=== PATIENT | female | born 2000 | race Caucasian/White ===

== ENCOUNTER 2025-04-04 04:12 | Inpatient (IN) | payer BC, SELFPAY ==
[2025-04-04] VITALS (78 sets, daily range): BP systolic 74–145; BP diastolic 47–119; PULSE 63–143; RESP 14–20; TEMP 36.3–37; O2SAT 80–100; BMI 30.8
[2025-04-04 04:58] LABS: Hematocrit 42.3 % (37.0-47.0); Hemoglobin 14.3 g/dL (12.0-15.0); Immature Granulocyte Percent A 0.6 % (0-0.5); Lymphocytes Absolute Auto 1.94 K/mm3 (0.9-3.2); Mean Corpuscular HGB Conc 33.8 g/dl (32-36); Mean Corpuscular Hemoglobin 31.2 pg (26-34); Mean Corpuscular Volume 92.2 fl (80-100); Nucleated Red Blood Cells Absolute Auto 0.000 K/mm3 (0.0-0.012); Nucleated Red Blood Cells Perc 0.0 % (0.0-0.2); Platelet Count Result 175 k/mm3 (150-375); Red Blood Count 4.59 M/mm3 (4.2-5.4); White Blood Count 9.5 K/mm3 (4.5-10.0)
--- NOTE | 2025-04-04 05:01 | LDADM ---
This patient, Amelia Latham, was admitted to Labor/Delivery/Recovery 103 on 04/04/25 at 04:12. Plans for labor, pain management and were discussed with patient. Patient/family oriented to hospital policies and general routines including ID bracelet, bed and alarms, visiting hours, pain management, procedures, bathroom and other care routines, personal items, smoking policy, room service/diet and guest tray routines, security routines, and visiting hours. Patient/Family are encouraged to report perceived risks to care and to ask questions if they do not understand what they are told or what they should do. See OBIX for further documentation.
[2025-04-04 06:21] LABS: Syphilis IgG/IgM Antibody Non-Reactive (Nonreactive)
--- NOTE | 2025-04-04 08:26 | WPDOBADMIT ---
Obstetrics - Admit Note Admission Note: record reviewed. No pertinent additions to the history and/or any subsequent changes in the physical findings that are not consistent with the expected course of the were found. Additions to the history and/or subsequent changes in the physical findings follow. Admit in labor, anticipate vaginal delivery
[2025-04-04] MEDS: LACTATED RINGERS 1,000 ML 999 ML IV CONT ×2 (09:56→10:55)
--- NOTE | 2025-04-04 11:27 | P.PNAN_ITS ---
Anes - Eval Pre Procedure Procedure: labor pain management Date/Time: 04/04/25 11:27 Surgeon: Domingo Preop Diagnosis: pain during labor Pre Op Diagnosis: Labor Patient Data Age: 24 Gender: F Height: 1.65 m Weight: 84.09 kg Last Vital Signs Temp 98.3 F 04/04/25 11:00 Pulse 82 04/04/25 11:25 BP 125/72 04/04/25 11:25 Pulse Ox 99 04/04/25 11:23 O2 Del Method Room Air 04/04/25 05:00 Allergies Allergy/AdvReac Type Severity Reaction Status Date / Time No Known Allergies Allergy Verified 04/04/25 05:06 Home Medications ?Medication ?Instructions ?Recorded ?Confirmed ?Type aspirin 81 mg tablet 81 mg PO DAILY 03/03/2503/13 History vit no.95-ferrous 1 tablet PO DAILY 03/03/25 04/04/25 History fumarate 28 mg-folic acid 800 mcg tablet () Laboratory Tests 04/04/25 04/04/25 04:53 05:29 WBC 9.5 K/mm3 (4.5-10.0) RBC 4.59 M/mm3 (4.2-5.4) Hgb 14.3 g/dL (12.0-15.0) Hct 42.3 % (37.0-47.0) MCV 92.2 fl (80-100) MCH 31.2 pg (26-34) MCHC 33.8 g/dl (32-36) RDW 13.2 % (11.5-14.5) Plt Count 175 k/mm3 (150-375) MPV 11.0 H fl (7.4-10.4) Immature Gran % (Auto) 0.6 H % (0-0.5) Neut % (Auto) 71.9 % (45.5-73.1) Lymph % (Auto) 20.4 % (18.3-44.2) [place] % (Auto) 5.5 % (2.6-8.5) Eos % (Auto) 1.2 % (0-4.4) Baso % (Auto) 0.4 % (0.2-1.2) Lymph # (Auto) 1.94 K/mm3 (0.9-3.2) [place] # (Auto) 0.5 K/mm3 (0.1-0.6) Eos # (Auto) 0.1 K/mm3 (0-0.3) Baso # (Auto) 0.0 K/mm3 (0.0-0.1) Abs Immat Gran (auto) 0.06 H K/mm3 (0.00-0.031) Absolute Neuts (auto) 6.8 H K/mm3 (1.3-6.7) Absolute Nucleated RBC 0.000 K/mm3 (0.0-0.012) Nucleated RBC % 0.0 % (0.0-0.2) Syphilis IgG/IgM Ab Non-reactive (Nonreactive) Blood Type O Positive Antibody Screen Negative Patient hx anesthesia problems: none Family hx anesthesia problems: none Results Review: All pre-operative results and documents have been reviewed as part of the pre- operative evaluation. [facility] Past Medical History Medical History (Updated 04/04/25 @ 11:29 by Jerrica Vazquez CRNA) Pain during labor Family History Family History Father Hypertension Other Cancer Social History Social History Smoking status: Never smoker Substance use: never Lack of Transportation: No Lack of Food: Never True Current Housing: I Have Housing Concerned About Future Housing: No Difficulty Paying Gas/Electric Bills: No Difficulty Paying for Meds: No Currently Unemployed: No Education: High School Diploma/GED Difficulty w/ Childcare or Family Care: No Spiritual care concerns: No Exam Day of Procedure 04/04/25 11:27
[2025-04-04] MEDS: OXYTOCIN 30 UNITS/NS 500 ML 30 UNITS/500 ML BAG 999 UNITS IV CONT (14:03)
--- NOTE | 2025-04-04 14:09 | PM.OBPRVD ---
OB - Vaginal Delivery Note Procedure Delivery date: 04/04/25 Delivery monitor: External FHT and External Uterine Route of delivery: Episiotomy description: None Laceration Description: None Specimen: No Quantitative Blood Loss (ml): 75 Anesthesia type: Epidural Disposition: Floor Complications: No immediate complications Baby Date of : 04/04/25 Time of : 13:59 Gestational Age by Date: 40 gender: Female presentation: vertex position: Left Occiput Anterior Placenta delivery description: Spontaneous Cord Vessel Description: 3 Vessels, Nuchal Cord (x1), Clamped/Cut and Delayed Cord Clamping
[2025-04-04] MEDS: OXYTOCIN 30 UNITS/NS 500 ML 30 UNITS/500 ML BAG 125 UNITS IV CONT (14:29)
--- NOTE | 2025-04-04 17:42 | OBPPTRN ---
Patient transferred to post room #286 via wheelchair. Support person present. Oriented to unit, room, information board, rooming in, admission packet and security measures. Patient verbalizes understanding.
[2025-04-04] MEDS: IBUPROFEN 600 MG TABLET PO (19:10)
[2025-04-04] MEDS: ACETAMINOPHEN 325 MG TABLET 650 MG PO (19:10)
[2025-04-04] MEDS: BENZOCAINE 20% AER SPR (*SP) 56 GM CAN 1 SPRAY TOPICAL (19:16)
[2025-04-04] MEDS: WITCH HAZEL 40 PADS 1 PAD TOPICAL (19:16)
[2025-04-05] MEDS: IBUPROFEN 600 MG TABLET PO ×3 (01:49→15:27)
[2025-04-05] MEDS: ACETAMINOPHEN 325 MG TABLET 650 MG PO ×3 (01:50→15:27)
[2025-04-05 03:28] LABS: Hematocrit 37.8 % (37.0-47.0); Hemoglobin 13.0 g/dL (12.0-15.0)
[2025-04-05 07:25] VITALS: BP 123/78; PULSE 70; RESP 18; TEMP 36.6; O2SAT 99
[2025-04-05] MEDS: DOCUSATE SODIUM 100 MG CAPSULE PO (07:46)
[2025-04-05] MEDS: MULTIVIT/MIN/PREN/FOL AC/IRON TABLET 1 TAB PO (07:46)
--- NOTE | 2025-04-05 09:59 | WPDANLDPN2 ---
Anes-Prog Note L&D Date/Time: 04/05/25 09:59 Comfortable throughout: labor and delivery Neuraxial method: epidural Epidural/Spinal procedure site: clean & non-tender Neuro status: Neuro function grossly intact. Cardiovascular status: normal Respiratory status: normal Airway patency: baseline Mental status: baseline Post-Op hydration status: normal Vital Signs: Last Vital Signs Temp 36.6 C 04/05/25 07:25 Pulse 70 04/05/25 07:25 Resp 18 04/05/25 07:25 BP 123/78 04/05/25 07:25 Pulse Ox 99 04/05/25 07:25 O2 Del Method Room Air 04/04/25 05:00 Pain score (VAS): 1 I/O: Intake & Output 04/04/25 04/05/25 04/05/25 23:59 07:59 15:59 Intake Total 200 Balance 200 Post-procedural complaints: none Patient feedback: Patient satisfied with anesthetic care.
--- NOTE | 2025-04-05 10:30 | PC.NURSE ---
Consulted with mother concerning needs and she shared her ability to independently latch infant optimally without pain. She breastfed her first baby for 15 months. Mother is feeding appropriately for growth of and understands stimulating infant to eat if needed. has had appropriate feedings in the last 24 hours meets the outcomes for weight, output, blood sugar and jaundice at this time. Provided information for community resources, outpatient services, and when to call a provider using the resource of the feeding sheet along with the mom and baby guide. She declines a WIC referral and has a breast pump at home. Mother voiced understanding of the information shared, is confident to continue effectively her at home, when to call for assistance, denies any additional assistance or education at this time. Reported to the Primary RN.
--- NOTE | 2025-04-05 10:37 | P.PNOB_ITS ---
OB - PN: Subj Subjective Date/time seen: 04/05/25 10:37 Interval history: PPD#1 s/p Doing well, pain controlled Voiding without issue Tolerating general diet Ready for discharge home OB - PN: Obj Data Labs 04/05/25 03:23 Labs: Laboratory Results - last 24 hr 04/05/25 03:23 Hgb 13.0 Hct 37.8 OB - PN A/P Plan day: 1 Plan: routine care and discharge home Time Spent With Patient Time: Total time spent is greater than 50% in coordination of care (as documented) at patient's floor/unit and/or counseling patient: Review of Systems 2 Review of Systems: All systems reviewed & are unremarkable except as noted in HPI and below Exam 2 Const: General: comfortable and no acute distress O rientation/consciousness: patient oriented x3 Resp: Effort & Inspection: normal respiratory effort
[2025-04-05 12:01] VITALS: BP 133/68; PULSE 65; RESP 16; TEMP 36.6; O2SAT 99
--- NOTE | 2025-04-05 12:05 | PC.NURSE ---
Patient viewed the discharge video Mother & Baby Care, The First Two Weeks. Patient was given the opportunity and encouraged to ask questions. Patient verbalized understanding of information shared and has been given the mother/baby guide for home reference.
--- NOTE | 2025-04-05 16:26 | PC.NURSE ---
Consent to take home her placenta was completed and patient was given her placenta in a labeled container, her placed it in a cooler.
--- NOTE | 2025-04-06 16:10 | PM.OBDSVD ---
DS: Admitting Diagnosis Discharge Date 04/05/25 Admitting Diagnosis labor DS: Discharge Diagnosis Discharge Diagnosis (1) (normal spontaneous vaginal delivery): Code(s): O80 - Encounter for full-term uncomplicated delivery Status: Acute OB - DS: Summary OB Procedures : None OB Procedures Intrapartum: Spontaneous Vag Delivery OB Procedures: : None Peripartum Data Laceration Description: None Episiotomy description: None Time Spent with Patient Time attestation: Total time spent providing and/or coordinating discharge services: Discharge Plan Discharge Attending physician on discharge: Gamal Gonzales Consulting providers: Ava Parks; Jerrica Vazquez; Jasbir Cartagena Discharging Clinician: Gamal Gonzales Patient Disposition: Home Activity: may shower, as tolerated and pelvic rest Diet: as tolerated Discharge Instructions: Education: Mom and Baby Guide Given to: Mother Follow-Up: Call your delivering provider's office for an appointment to be seen in: 5 weeks Mom and baby should come to the [facility] for the follow-up appointment. Appointment Date/Time: April 07, 2025 at 10:00 am What to expect at your follow-up visit: Physical Assessment Call [phone] if you are unable to keep your appointment time. BREAST CARE: * Wear a snug supportive bra. * For engorgement discomfort: Breast Feeding: * Apply warm moist washcloths * Express milk as needed to relieve engorgement * Wear loose clothing Bottle Feeding: * May apply ice packs * For sore nipples: * Identify correct latch-on * Apply warm moist washcloths before and after nursing * Air dry nipples after nursing * May apply Lansinoh cream to nipples EPISIOTOMY/PERINEAL CARE: * Until bleeding stops, use your shanelle bottle after urinating * Change your pad frequently throughout the day * You may take sitz baths several times a day (fill your bathtub with warm water and soak for 20 minutes.) Do NOT bathe in the water * No tub baths until seen by your physician - You may shower ACTIVITY: * Rest as much as possible. * Do not exercise or lift anything heavier than your baby (such as laundry or other children.) * Avoid stairs or driving as much as possible. * Do not put anything into the vagina. No douching, tampons, or sexual activity until seen by physician. NOTIFY PHYSICIAN IF YOU HAVE ANY QUESTIONS OR IF ANY OF THE FOLLOWING SYMPTOMS OCCUR: * If your episiotomy or incision becomes red, swollen, or more painful than what you have experienced in the hospital. * If your vaginal bleeding becomes foul smelling. * If your vaginal bleeding becomes more heavy than a period or if your bleeding changes from pink to bright red. However, you may pass an occasional walnut-sized clot once or twice for the first week . * If you experience a sharp, shooting pain in you calves. * If you discover a hard, reddened area on your breast or if you experience flu-like symptoms. DIET: * Eat regular, well-balanced meals. * Drink plenty of fluids daily. If , drink to thirst. Patient Language: Slovak Stand Alone Forms: General Discharge Information Follow-up/Referrals: Ava Parks CNM [Certified Nurse Massage Therapy Instructor, PRODUCT EXPERT] - 5 Weeks Discharge Medications: New ibuprofen 600 mg Tablet 600 mg PO Q6H PRN (Reason: Cramping) Qty: 30 0RF Continued PNV no.95-ferrous fumarate-FA [] 28 mg iron- 800 mcg tablet 1 tablet PO DAILY Discontinued aspirin 81 mg tablet 81 mg PO DAILY Date of admission: 04/04/25 04:12 Primary Care Provider: UNKNOWN,DOCTOR Admitting Provider: Basil Lane Attending physician on admission: Gamal Gonzales Condition: Stable
[2025-04-07 10:12] VITALS: BP 123/87; PULSE 69; RESP 18; TEMP 37.1; O2SAT 100
== END 2025-04-05 16:40 | disposition home or self-care (01) | DRG 807 ==
LOC: ANHOB2 04-05 10:40 → ANHLDR 04-06 09:00 → ANHOB2 04-06 09:00
PROVIDERS: Advanced Practice Midwife; Admitting Provider Obstetrics & Gynecology; Visit Provider Obstetrics & Gynecology
DX: O69.81X0 Labor and delivery complicated by cord around neck, without compression, not applicable or unspecified (principal); Z37.0 Single live birth; Z3A.40 40 weeks gestation of pregnancy
CPT/HCPCS: 36415; 85014; 85018; 85025; 86593; 86850; 86900; 86901; A9270; J2590; J2795; J7120

== ENCOUNTER 2025-04-17 16:35 | Observation (INO) | payer BC, SELFPAY ==
--- NOTE | ~2025-04-17 | CT_ITS ---
Exam: CT abdomen and pelvis with contrast Clinical History: [Right lower quadrant pain ] Comparison: [ None available] Technique: Multiple axial CT images of the abdomen and pelvis were obtained with IV contrast. Sagittal and coronal reformatted images were obtained. FINDINGS: Lung bases: [Clear ] Liver: [ No mass.] [ No intrahepatic biliary duct dilatation.] Gallbladder: [ No wall thickening or stones.] Common bile duct: [ Normal caliber.] [ No stones.] Spleen: [ Within normal limits.] Pancreas: [ No mass. No pancreatic fluid collection.] Adrenals: [ No masses.] Kidneys: [ No masses. No hydronephrosis.][ There are a few too small to characterize low-attenuation lesions in the kidneys.] Lymph nodes: [ No adenopathy in the abdomen or pelvis.] Stomach, small bowel and colon: [ No bowel wall thickening or obstruction.] Appendix is borderline dilated. No dilated bowel loops at this time. Peritoneum cavity: [ Small amount of fat stranding about the appendix. Bladder: [ Unremarkable.] Uterus is prominent and heterogeneous with fluid in the endometrial canal. Osseous structures: [ No acute fracture or destructive lesion.] [ Multilevel degenerative change in the visualized spine.] Abdominal aorta: [ No aneurysm.] Additional findings: [ None of significance.] IMPRESSION: 1. Small amount of nonspecific fat stranding about the appendix. The appendix is borderline dilated. Acute appendicitis is possible in the appropriate clinical setting. Correlate clinically. 2. Uterus is prominent and heterogeneous with fluid in the endometrial canal. A pelvic ultrasound is suggested. Reviewed, dictated and finalized at location Q. IMPRESSION: 1. Small amount of nonspecific fat stranding about the appendix. The appendix i s borderline dilated. Acute appendicitis is possible in the appropriate clinica l setting. Correlate clinically. 2. Uterus is prominent and heterogeneous with fluid in the endometrial canal. A pelvic ultrasound is suggested.
[2025-04-17 16:50] VITALS: BP 142/81; PULSE 66; RESP 20; TEMP 37.1; O2SAT 99
[2025-04-17 17:32] LABS: BEDSIDEPREGUCG Negative (Negative)
[2025-04-17 17:41] LABS: Hematocrit 47.1 % (37.0-47.0); Hemoglobin 16.0 g/dL (12.0-15.0); Immature Granulocyte Percent A 0.3 % (0-0.5); Lymphocytes Absolute Auto 2.16 K/mm3 (0.9-3.2); Mean Corpuscular HGB Conc 34.0 g/dl (32-36); Mean Corpuscular Hemoglobin 31.3 pg (26-34); Mean Corpuscular Volume 92.0 fl (80-100); Nucleated Red Blood Cells Absolute Auto 0.000 K/mm3 (0.0-0.012); Nucleated Red Blood Cells Perc 0.0 % (0.0-0.2); Platelet Count Result 269 k/mm3 (150-375); Red Blood Count 5.12 M/mm3 (4.2-5.4); White Blood Count 11.9 K/mm3 (4.5-10.0)
[2025-04-17 17:51] LABS: Alanine Aminotransferase 27 U/L (6-35); Albumin Level 4.3 g/dL (3.5-5.1); Alkaline Phosphatase 132 U/L (38-126); Anion Gap 8 mmol/L (4-12); Aspartate Amino Transferase 29 U/L (14-36); Bilirubin,Total 0.4 mg/dL (0.2-1.3); Blood Urea Nitrogen 18 mg/dL (7-17); Calcium 9.1 mg/dL (8.4-10.2); Carbon Dioxide 25 mmol/L (22-30); Chloride 103 mmol/L (98-107); Estimated Glomerular Filt Rate > 60; Glucose 97 mg/dL (65-110); Lipase 69 U/L (23-300); Potassium 3.6 mmol/L (3.4-5.0); Sodium 136 mmol/L (137-145); Total Protein 7.5 g/dL (6.3-8.2)
[2025-04-17 18:22] LABS: Add Urine Microscopic? YES; Appearance Urine Cloudy (Clear); Glucose Urine UA Negative (Negative); Leukocyte Esterase Ur Trace LEU/UL (Negative); Nitrate Urine Negative (Negative); Non Pathogenic Casts 0-2; Specific Grav Ur 1.022 (1.001-1.035)
--- NOTE | 2025-04-17 22:49 | ED_ITS ---
HPI - Abdominal Pain General Chief Complaint: Abdominal Pain <ADEOLA Villarreal Last Filed: 04/18/25 00:07> Stated Complaint: Abdominal pain <ADEOLA Villarreal Last Filed: 04/18/25 00:07> Time Seen by Provider: 04/17/25 21:02 <ADEOLA Villarreal Last Filed: 04/18/25 00:07> Source: patient <ADEOLA Villarreal Last Filed: 04/18/25 00:07> Mode of arrival: ambulatory <ADEOLA Villarreal Last Filed: 04/18/25 00:07> Limitations: no limitations <ADEOLA Villarreal Last Filed: 04/18/25 00:07> History of Present Illness HPI narrative: This is a 24-year-old female that presents to the emergency department for right lower quadrant abdominal pain. Ongoing since yesterday. Reports the pain initially was around her bellybutton, reports associated nausea and anorexia. She is two weeks post , vaginal delivery. Denies fevers, vomiting, and diarrhea, dysuria. <Latia Pepper PA-C - Last Filed: 04/18/25 00:07> Related Data Home Medications: Home Medications ?Medication ?Instructions ?Recorded ?Confirmed ?Last Taken ?Type vit no.95-ferrous 1 tablet PO DAILY 03/03/25 04/18/25 04/17/25 History fumarate 28 mg-folic acid 800 mcg tablet () aspirin 81 mg tablet,delayed 81 mg PO DAILY 04/18/25 0 04/18/25 04/17/25 History release (Adult Aspirin Regimen) <ADEOLA Villarreal Last Filed: 04/18/25 00:07> Allergies/Adverse Reactions: Allergies Allergy/AdvReac Type Severity Reaction Status Date / Time No Known Allergies Allergy Verified 04/17/25 16:50 <ADEOLA Villarreal Last Filed: 04/18/25 00:07> Review of Systems 2 Review of Systems: All systems reviewed & are unremarkable except as noted in HPI and below <ADEOLA Villarreal Last Filed: 04/18/25 00:07> [facility] Past Medical History Medical History: Medical History (Updated 04/18/25 @ 00:05 by Latia Pepper PA-C) Pain during labor <Latia Pepper PA-C - Last Filed: 04/18/25 00:07> Family History Family History: Family History Father Hypertension Other Cancer <Latia Pepper PA-C - Last Filed: 04/18/25 00:07> Social History Social History: Social History Smoking status: Never smoker Second hand tobacco smoke exposure: No Alcohol intake: never Substance use: never Substance use type: does not use Lack of Transportation: No Lack of Food: Never True Current Housing: I Have Housing Concerned About Future Housing: No Difficulty Paying Gas/Electric Bills: No Difficulty Paying for Meds: No Currently Unemployed: No Education: High School Diploma/GED Difficulty w/ Childcare or Family Care: No Spiritual care concerns: No <Latia Pepper PA-C - Last Filed: 04/18/25 00:07> Exam 2 Narrative: GENERAL: Well-appearing, well-nourished, and in no acute distress. HEAD: Normocephalic, atraumatic. EYES: EOMI. CHEST: Clear to auscultation. No respiratory distress. No wheezes rales or rhonchi HEART: Regular rate and rhythm. No murmur heard. Normal peripheral pulses. ABDOMEN: Soft, nondistended, normal active bowel sounds. Tender to palpation in the right lower quadrant, without guarding EXTREMITIES: Normal range of motion. No edema. SKIN: Warm, dry, no rash. NEURO: No focal deficits. Alert and oriented x3. PSYCH: Normal mood and affect <Latia Pepper PA-C - Last Filed: 04/18/25 00:07> Course Course Emergency Course: patient updated on her workup and agrees with plan of care <Latia Pepper PA-C - Last Filed: 04/18/25 00:07> CIVIL MANAGER/PA Physician Supervision This visit was performed by both a physician and an APC. For this patient encounter, I reviewed the CIVIL MANAGER or PA documentation, treatment plan, and medical decision making and had [id number] time with this patient. I performed all aspects of the MDM as documented. <Moody Santos MD - Last Filed: 04/18/25 07:05> Consultations Consultation #1: Spoke with Dr. Blount about patient and workup. Patient will be started on IV antibiotics, given pain medication as needed, NPO, likely surgery in the morning <Latia Pepper PA-C - Last Filed: 04/18/25 00:07> Date: 04/17/25 <Latia Pepper PA-C - Last Filed: 04/18/25 00:07> Vital Signs Vital signs: Vital Signs Temperature 98.7 F 04/17/25 16:50 Pulse Rate 66 04/17/25 16:50 Respiratory Rate 20 04/17/25 16:50 Blood Pressure 142/81 H 04/17/25 16:50 Pulse Oximetry 99 04/17/25 16:50 Oxygen Delivery Room Air 04/17/25 16:50 Temperature 97.1 F L 04/18/25 06:00 Pulse Rate 67 04/18/25 06:00 Respiratory Rate 20 04/18/25 06:00 Blood Pressure 98/60 L 04/18/25 06:00 Pulse Oximetry 98 04/18/25 06:00 Oxygen Delivery Room Air 04/17/25 16:50 <Latia Pepper PA-C - Last Filed: 04/18/25 00:07> Vital Signs Temperature 98.7 F 04/17/25 16:50 Pulse Rate 66 04/17/25 16:50 Respiratory Rate 20 04/17/25 16:50 Blood Pressure 142/81 H 04/17/25 16:50 Pulse Oximetry 99 04/17/25 16:50 Oxygen Delivery Room Air 04/17/25 16:50 Temperature 97.1 F L 04/18/25 06:00 Pulse Rate 67 04/18/25 06:00 Respiratory Rate 20 04/18/25 06:00 Blood Pressure 98/60 L 04/18/25 06:00 Pulse Oximetry 98 04/18/25 06:00 Oxygen Delivery Room Air 04/17/25 16:50 <Moody Santos MD - Last Filed: 04/18/25 07:05> MDM - Abdominal Pain MDM Narrative Medical decision making narrative: Patient presents emergency department for right lower quadrant abdominal pain. She is afebrile and nontoxic appearing. CBC with leukocytosis to 11.9. Also shows hemoconcentration. Metabolic panel with some mild evidence of dehydration as well. Patient given a L of IV fluids in the ED. urine without evidence of infection, test is negative. CT abdomen pelvis shows acute appendicitis. Spoke with Dr. Blount about patient and workup. Patient will be started on IV antibiotics, given pain medication as needed, NPO, likely surgery in the morning <Latia Pepper PA-C - Last Filed: 04/18/25 00:07> Differential Diagnosis Differential diagnosis: Likely acute appendicitis, calculus of kidney and diverticulitis <Latia Pepper PA-C - Last Filed: 04/18/25 00:07> Lab Data Attestation: I reviewed the patient's lab results. <Latia Pepper PA-C - Last Filed: 04/18/25 00:07> Result diagrams: 04/17/25 17:28 04/17/25 17:28 <ADEOLA Villarreal Last Filed: 04/18/25 00:07> Labs: Lab Results 04/17/25 04/17/25 Range/Units 17:28 17:29 WBC 11.9 H (4.5-10.0) K/mm3 RBC 5.12 (4.2-5.4) M/mm3 Hgb 16.0 H D (12.0-15.0) g/dL Hct 47.1 H (37.0-47.0) % MCV 92.0 (80-100) fl MCH 31.3 (26-34) pg MCHC 34.0 (32-36) g/dl RDW 12.2 (11.5-14.5) % Plt Count 269 D (150-375) k/mm3 MPV 11.0 H (7.4-10.4) fl Immature Gran % (Auto) 0.3 (0-0.5) % Neut % (Auto) 74.0 H (45.5-73.1) % Lymph % (Auto) 18.2 L (18.3-44.2) % [place] % (Auto) 4.3 (2.6-8.5) % Eos % (Auto) 2.4 (0-4.4) % Baso % (Auto) 0.8 (0.2-1.2) % Lymph # (Auto) 2.16 (0.9-3.2) K/mm3 [place] # (Auto) 0.5 (0.1-0.6) K/mm3 Eos # (Auto) 0.3 (0-0.3) K/mm3 Baso # (Auto) 0.1 (0.0-0.1) K/mm3 Abs Immat Gran (auto) 0.03 (0.00-0.031) K/mm3 Absolute Neuts (auto) 8.8 H (1.3-6.7) K/mm3 Absolute Nucleated RBC 0.000 (0.0-0.012) K/mm3 Nucleated RBC % 0.0 (0.0-0.2) % Sodium 136 L (137-145) mmol/L Potassium 3.6 (3.4-5.0) mmol/L Chloride 103 (98-107) mmol/L Carbon Dioxide 25 (22-30) mmol/L Anion Gap 8 (4-12) mmol/L BUN 18 H (7-17) mg/dL Creatinine 1.07 H (0.7-1.0) mg/dL Estim Creat Clear Calc Not Reportable Estimated GFR > 60 (59 - ) Glucose 97 (65-110) mg/dL Calcium 9.1 (8.4-10.2) mg/dL Total Bilirubin 0.4 (0.2-1.3) mg/dL AST 29 (14-36) U/L ALT 27 (6-35) U/L Alkaline Phosphatase 132 H (38-126) U/L Total Protein 7.5 (6.3-8.2) g/dL Albumin 4.3 (3.5-5.1) g/dL Lipase 69 (23-300) U/L Urine Color Yellow (Yellow) Urine Appearance Cloudy H (Clear) Urine pH 8.0 (5.0-9.0) Ur Specific [place] 1.022 (1.001-1.035) Urine Protein Negative (Negative) mg/dL Urine Glucose (UA) Negative (Negative) mg/dL Urine Ketones Trace H (Negative) mg/dL Ur Blood (Man) Negative (Negative) Urine Nitrate Negative (Negative) Urine Bilirubin Negative (Negative) Urine Urobilinogen 1.0 (<2.0) mg/dL Leukocyte Esterase Rfl Trace H (Negative) LOUISE/UL Urine RBC 0-2 (0-2) /hpf Urine WBC 0-5 (0-3) /hpf Ur Squamous Epith Cells None seen (Few) /hpf Urine Bacteria None seen /hpf Urine Casts 0-2 POC Urine HCG, Qual Negative (Negative) <Latia Pepper PA-C - Last Filed: 04/18/25 00:07> Lab Results 04/17/25 04/17/25 Range/Units 17:28 17:29 WBC 11.9 H (4.5-10.0) K/mm3 RBC 5.12 (4.2-5.4) M/mm3 Hgb 16.0 H D (12.0-15.0) g/dL Hct 47.1 H (37.0-47.0) % MCV 92.0 (80-100) fl MCH 31.3 (26-34) pg MCHC 34.0 (32-36) g/dl RDW 12.2 (11.5-14.5) % Plt Count 269 D (150-375) k/mm3 MPV 11.0 H (7.4-10.4) fl Immature Gran % (Auto) 0.3 (0-0.5) % Neut % (Auto) 74.0 H (45.5-73.1) % Lymph % (Auto) 18.2 L (18.3-44.2) % [place] % (Auto) 4.3 (2.6-8.5) % Eos % (Auto) 2.4 (0-4.4) % Baso % (Auto) 0.8 (0.2-1.2) % Lymph # (Auto) 2.16 (0.9-3.2) K/mm3 [place] # (Auto) 0.5 (0.1-0.6) K/mm3 Eos # (Auto) 0.3 (0-0.3) K/mm3 Baso # (Auto) 0.1 (0.0-0.1) K/mm3 Abs Immat Gran (auto) 0.03 (0.00-0.031) K/mm3 Absolute Neuts (auto) 8.8 H (1.3-6.7) K/mm3 Absolute Nucleated RBC 0.000 (0.0-0.012) K/mm3 Nucleated RBC % 0.0 (0.0-0.2) % Sodium 136 L (137-145) mmol/L Potassium 3.6 (3.4-5.0) mmol/L Chloride 103 (98-107) mmol/L Carbon Dioxide 25 (22-30) mmol/L Anion Gap 8 (4-12) mmol/L BUN 18 H (7-17) mg/dL Creatinine 1.07 H (0.7-1.0) mg/dL Estim Creat Clear Calc Not Reportable Estimated GFR > 60 (59 - ) Glucose 97 (65-110) mg/dL Calcium 9.1 (8.4-10.2) mg/dL Total Bilirubin 0.4 (0.2-1.3) mg/dL AST 29 (14-36) U/L ALT 27 (6-35) U/L Alkaline Phosphatase 132 H (38-126) U/L Total Protein 7.5 (6.3-8.2) g/dL Albumin 4.3 (3.5-5.1) g/dL Lipase 69 (23-300) U/L Urine Color Yellow (Yellow) Urine Appearance Cloudy H (Clear) Urine pH 8.0 (5.0-9.0) Ur Specific [place] 1.022 (1.001-1.035) Urine Protein Negative (Negative) mg/dL Urine Glucose (UA) Negative (Negative) mg/dL Urine Ketones Trace H (Negative) mg/dL Ur Blood (Man) Negative (Negative) Urine Nitrate Negative (Negative) Urine Bilirubin Negative (Negative) Urine Urobilinogen 1.0 (<2.0) mg/dL Leukocyte Esterase Rfl Trace H (Negative) LOUISE/UL Urine RBC 0-2 (0-2) /hpf Urine WBC 0-5 (0-3) /hpf Ur Squamous Epith Cells None seen (Few) /hpf Urine Bacteria None seen /hpf Urine Casts 0-2 POC Urine HCG, Qual Negative (Negative) <Moody Santos MD - Last Filed: 04/18/25 07:05> Imaging Data Radiologist's impression: CT abdomen/pelvis: Acute non perforated appendicitis with prominent periappendiceal stranding, appendix 0.8 cm diameter with possible stone <ADEOLA Villarreal Last Filed: 04/18/25 00:07> Critical Care Time Critical Care Time Critical Care Time: No <ADEOLA Villarreal Last Filed: 04/18/25 00:07> Discharge Plan Discharge Clinical Impression: Acute appendicitis Qualifiers: Acute appendicitis type: with localized peritonitis Appendicitis gangrene presence: without gangrene Appendicitis perforation presence: without perforation Appendicitis abscess presence: without abscess Qualified Code(s): K 35.30 - Acute appendicitis with localized peritonitis, without perforation or gangrene <ADEOLA Villarreal Last Filed: 04/18/25 00:07> Patient Disposition: Still a Patient <ADEOLA Villarreal Last Filed: 04/18/25 00:07> Condition: Stable <ADEOLA Villarreal Last Filed: 04/18/25 00:07>
[2025-04-17] MEDS: SODIUM CHLORIDE 0.9% IV 1,000 ML 999 ML IV CONT (23:00)
[2025-04-18] VITALS (10 sets, daily range): BP systolic 98–132; BP diastolic 56–74; PULSE 67–91; RESP 12–20; TEMP 36.2–37.1; O2SAT 96–100
[2025-04-18] MEDS: SODIUM CHLORIDE 0.9% IV 1,000 ML 125 ML IV CONT
[2025-04-18] MEDS: PIPERACILLIN/TAZOBACTAM SOD 3.375 GM in SODIUM CHLORIDE 0.9% IV 50 ML 100 ML IVPB ×2 (00:01→05:04)
--- NOTE | 2025-04-18 00:40 | ADMGEN ---
This patient, Amelia Latham, was admitted to [facility] Surg Room 329-01. Patient/family oriented to hospital policies and general routines including ID bracelet, bed and alarms, visiting hours, pain management, procedures, bathroom and other care routines, personal items, smoking policy, room service/diet, and visiting hours. Information on how to activate the Rapid Response Team has been discussed. Patient/Family are encouraged to report perceived risks to care and to ask questions if they do not understand what they are told or what they should do.
[2025-04-18] MEDS: KETOROLAC 30 MG/ML VIAL (*BKC) IV PUSH ×2 (00:55→10:42)
[2025-04-18] MEDS: DEXTROSE 50% 25 GM/50 ML SYRINGE IV PUSH (01:25)
[2025-04-18] MEDS: DEXTROSE 5%/LACTATED RINGERS 1,000 ML 125 ML IV CONT (01:45)
--- NOTE | 2025-04-18 09:11 | P.HP_ITS ---
H&P: HPI History of Present Illness Date/Time: 04/18/25 09:11 Chief Complaint: Acute appendicitis Narrative: Pt is a female who is 2 weeks after an uncomplicated fashion delivery. About 1 day ago she started having some generalized lower and middle abdominal pain which localized the right lower quadrant of the abdomen. Some nausea and anorexia but [place] [address] scan abdomen pelvis showed a dilated appendix about 8mm in diameter. Some periappendiceal inflammation noted. May have a small appendicolith. Otherwise she is very healthy 24-year-old. She is currently . Review of Systems Review of Systems: The remainder of the review of systems to include constitutional, HEENT, cardiovascular, respiratory, GI, , integumentary, musculoskeletal, endocrine, immunologic, hematologic, psychiatric, and neurologic are all negative except for which is mentioned above in the HPI. [facility] Past Medical History Medical History Pain during labor Family History Family History Father Hypertension Other Cancer Social History Social History Smoking status: Never smoker Second hand tobacco smoke exposure: No Alcohol intake: never Substance use: never Substance use type: does not use Lack of Transportation: No Lack of Food: Never True Current Housing: I Have Housing Concerned About Future Housing: No Difficulty Paying Gas/Electric Bills: No Difficulty Paying for Meds: No Currently Unemployed: No Education: High School Diploma/GED Difficulty w/ Childcare or Family Care: No Spiritual care concerns: No Meds Home Medications and Allergies Home Medications ?Medication ?Instructions ?Recorded ?Confirmed ?Type vit no.95-ferrous 1 tablet PO DAILY 03/03/25 04/18/25 History fumarate 28 mg-folic acid 800 mcg tablet () ibuprofen 600 mg tablet 600 mg PO Q6H PRN Cramping # 30 tabs 04/05/25 04/18/25 Rx aspirin 81 mg tablet,delayed 81 mg PO DAILY 04/18/25 0 04/18/25 History release (Adult Aspirin Regimen) Allergies Allergy/AdvReac Type Severity Reaction Status Date / Time No Known Allergies Allergy Verified 04/17/25 16:50 Vital Signs Vital Signs - 24 hr 04/17/25 16:50 04/18/25 01:02 04/18/25 06:00 Temperature 37.1 C 36.2 C L 36.2 C L Pulse Rate 66 85 67 Respiratory Rate 20 20 20 Blood Pressure 142/81 H 128/73 98/60 L Pulse Oximetry 99 98 98 Oxygen Delivery Room Air Exam Const: General: comfortable and no acute distress HENMT: Ears: TM's normal bilaterally Face/Nose/Sinus: Normal nares present Mouth: Yes moist mucous membranes Eyes: General: appearance normal, both eyes and all related structures Sclera: sclerae normal Pupils: Equal, round and reactive pupils present EOM: EOMs intact bilaterally Neck: Neck: supple and no JVD Resp: Effort & Inspection: normal respiratory effort Auscultation: clear to auscultation bilaterally Cardio: Rate: regular rate Rhythm: regular rhythm GI: Other: Abdomen is soft and nondistended. Mild tenderness right lower quadrant. No generalized peritoneal signs. No surgical scars. No ventral hernias. Skin: General skin exam: normal color and no rashes or lesions noted Neuro: General: gait normal Speech: normal speech Motor exam (neuro): 5/5 motor strength present throughout Extrem: General: normal to inspection Psych: Mental Status: mental status grossly normal Affect: normal affect H&P: Results Labs Labs: Short CBC 04/17/25 Range/Units 17:28 WBC 11.9 H (4.5-10.0) K/mm3 Hgb 16.0 H D (12.0-15.0) g/dL Hct 47.1 H (37.0-47.0) % Plt Count 269 D (150-375) k/mm3 BMP 04/17/25 17:28 Sodium 136 L Potassium 3.6 Chloride 103 Carbon Dioxide 25 BUN 18 H Creatinine 1.07 H Glucose 97 Calcium 9.1 Liver Function 04/17/25 Range/Units 17:28 Total Bilirubin 0.4 (0.2-1.3) mg/dL AST 29 (14-36) U/L ALT 27 (6-35) U/L Alkaline Phosphatase 132 H (38-126) U/L Albumin 4.3 (3.5-5.1) g/dL Urine 04/17/25 Range/Units 17:28 Urine Color Yellow (Yellow) Urine Appearance Cloudy H (Clear) Urine pH 8.0 (5.0-9.0) Ur Specific [place] 1.022 (1.001-1.035) Urine Protein Negative (Negative) mg/dL Urine Glucose (UA) Negative (Negative) mg/dL Assessment and Plan Assessment and plan (1) Acute appendicitis: Qualifiers: Acute appendicitis type: with localized peritonitis Appendicitis abscess presence: without abscess Appendicitis gangrene presence: without gangrene Appendicitis perforation presence: without perforation Qualified Code(s): K35.30 - Acute appendicitis with localized peritonitis, without perforation or gangrene Code(s): K35.80 - Unspecified acute appendicitis Status: Acute Assessment and Plan: Patient is a 24hour history of right lower quadrant abdominal pain. Physical exam and history consistent with acute appendicitis. Confirmed by CT scan. She is 2 weeks from a vaginal delivery. Records proceeding with an emergent laparoscopic appendectomy possible conversion open appendectomy this morning. Risks, benefits, indications, and expected outcomes were discussed in detail with the patient and/or family. They understand and I have answered all other questions. They wished to proceed with surgery as outlined above.
--- NOTE | 2025-04-18 09:16 | WPDHPUPDATE1 ---
History and Physical Update Update Date/Time: 04/18/25 09:16 History and Physical has been reviewed, including an updated exam of the patient. There are NO changes in the patient's condition. Risks, benefits, and alternatives have been discussed and questions answered. Patient agrees to proceed with procedure.
--- NOTE | 2025-04-18 09:19 | WPDANESEPPF ---
Anes - Initial Pre Proc Eval Procedure: Operation Date: 04/18/25 10:30 Proposed Procedures p Laparoscopic Appendectomy - Bill Blount MD Date/Time: 04/18/25 09:19 Surgeon: Bill Blount MD Pre Op Diagnosis: Acute appendicitis Patient Data Age: 24 Gender: F Height: 1.65 m Weight: Last Vital Signs Temp 36.2 C L 04/18/25 06:00 Pulse 67 04/18/25 06:00 Resp 20 04/18/25 06:00 BP 98/60 L 04/18/25 06:00 Pulse Ox 98 04/18/25 06:00 O2 Del Method Room Air 04/17/25 16:50 Allergies Allergy/AdvReac Type Severity Reaction Status Date / Time No Known Allergies Allergy Verified 04/17/25 16:50 Home Medications ?Medication ?Instructions ?Recorded ?Confirmed ?Type vit no.95-ferrous 1 tablet PO DAILY 03/03/25 04/18/25 History fumarate 28 mg-folic acid 800 mcg tablet () ibuprofen 600 mg tablet 600 mg PO Q6H PRN Cramping #30 tabs 04/05/25 04/18/25 Rx aspirin 81 mg tablet,delayed 81 mg PO DAILY 04/18/25 04/18/25 History release (Adult Aspirin Regimen) Laboratory Tests 04/17/25 04/17/25 04/18/25 17:28 17:29 00:53 WBC 11.9 H K/mm3 (4.5-10.0) RBC 5.12 M/mm3 (4.2-5.4) Hgb 16.0 H D g/dL (12.0-15.0) Hct 47.1 H % (37.0-47.0) MCV 92.0 fl (80-100) MCH 31.3 pg (26-34) MCHC 34.0 g/dl (32-36) RDW 12.2 % (11.5-14.5) Plt Count 269 D k/mm3 (150-375) MPV 11.0 H fl (7.4-10.4) Immature Gran % (Auto) 0.3 % (0-0.5) Neut % (Auto) 74.0 H % (45.5-73.1) Lymph % (Auto) 18.2 L % (18.3-44.2) [place] % (Auto) 4.3 % (2.6-8.5) Eos % (Auto) 2.4 % (0-4.4) Baso % (Auto) 0.8 % (0.2-1.2) Lymph # (Auto) 2.16 K/mm3 (0.9-3.2) [place] # (Auto) 0.5 K/mm3 (0.1-0.6) Eos # (Auto) 0.3 K/mm3 (0-0.3) Baso # (Auto) 0.1 K/mm3 (0.0-0.1) Abs Immat Gran (auto) 0.03 K/mm3 (0.00-0.031) Absolute Neuts (auto) 8.8 H K/mm3 (1.3-6.7) Absolute Nucleated RBC 0.000 K/mm3 (0.0-0.012) Nucleated RBC % 0.0 % (0.0-0.2) Sodium 136 L mmol/L (137-145) Potassium 3.6 mmol/L (3.4-5.0) Chloride 103 mmol/L (98-107) Carbon Dioxide 25 mmol/L (22-30) Anion Gap 8 mmol/L (4-12) BUN 18 H mg/dL (7-17) Creatinine 1.07 H mg/dL (0.7-1.0) Estim Creat Clear Calc Not Reportable Estimated GFR > 60 (59 - ) Glucose 97 mg/dL (65-110) POC Capillary Glucose 79 mg/dl (65-105) Calcium 9.1 mg/dL (8.4-10.2) Total Bilirubin 0.4 mg/dL (0.2-1.3) AST 29 U/L (14-36) ALT 27 U/L (6-35) Alkaline Phosphatase 132 H U/L (38-126) Total Protein 7.5 g/dL (6.3-8.2) Albumin 4.3 g/dL (3.5-5.1) Lipase 69 U/L (23-300) Urine Color Yellow (Yellow) Urine Appearance Cloudy H (Clear) Urine pH 8.0 (5.0-9.0) Ur Specific [place] 1.022 (1.001-1.035) Urine Protein Negative mg/dL (Negative) Urine Glucose (UA) Negative mg/dL (Negative) Urine Ketones Trace H mg/dL (Negative) Ur Blood (Man) Negative (Negative) Urine Nitrate Negative (Negative) Urine Bilirubin Negative (Negative) Urine Urobilinogen 1.0 mg/dL (<2.0) Leukocyte Esterase Rfl Trace H LOUISE/UL (Negative) Urine RBC 0-2 /hpf (0-2) Urine WBC 0-5 /hpf (0-3) Ur Squamous Epith Cells None seen /hpf (Few) Urine Bacteria None seen /hpf Urine Casts 0-2 POC Urine HCG, Qual Negative (Negative) 04/18/25 04/18/25 05:43 08:27 WBC RBC Hgb Hct MCV MCH MCHC RDW Plt Count MPV Immature Gran % (Auto) Neut % (Auto) Lymph % (Auto) [place] % (Auto) Eos % (Auto) Baso % (Auto) Lymph # (Auto) [place] # (Auto) Eos # (Auto) Baso # (Auto) Abs Immat Gran (auto) Absolute Neuts (auto) Absolute Nucleated RBC Nucleated RBC % Sodium Potassium Chloride Carbon Dioxide Anion Gap BUN Creatinine Estim Creat Clear Calc Estimated GFR Glucose POC Capillary Glucose 84 mg/dl 81 mg/dl (65-105) (65-105) Calcium Total Bilirubin AST ALT Alkaline Phosphatase Total Protein Albumin Lipase Urine Color Urine Appearance Urine pH Ur Specific [place] Urine Protein Urine Glucose (UA) Urine Ketones Ur Blood (Man) Urine Nitrate Urine Bilirubin Urine Urobilinogen Leukocyte Esterase Rfl Urine RBC Urine WBC Ur Squamous Epith Cells Urine Bacteria Urine Casts POC Urine HCG, Qual Patient hx anesthesia problems: none Family hx anesthesia problems: none Results Review: All pre-operative results and documents have been reviewed as part of the pre-operative evaluation. [facility] Past Medical History Medical History Pain during labor Family History Family History Father Hypertension Other Cancer Social History Social History Smoking status: Never smoker Second hand tobacco smoke exposure: No Alcohol intake: never Substance use: never Substance use type: does not use Lack of Transportation: No Lack of Food: Never True Current Housing: I Have Housing Concerned About Future Housing: No Difficulty Paying Gas/Electric Bills: No Difficulty Paying for Meds: No Currently Unemployed: No Education: High School Diploma/GED Difficulty w/ Childcare or Family Care: No Spiritual care concerns: No Anes - Eval Final PreProcedure Day of Procedure 04/18/25 09:19 Patient weight: normal Heart: regular rate and rhythm Lungs: clear to auscultation Airway: Mallampati scale class II Neurological: alert and oriented Last oral intake: >/= 8 hours ASA classification: II Emergent: no Anesthetic plan: proceed Anesthesia type and monitoring: general ETT and standard monitoring Results Review: All pre-operative results and documents have been reviewed as part of the pre-operative evaluation. Informed Consent: The patient's anesthetic plan and its attendant risks and benefits were discussed with the patient/family/POA. Questions were solicited and answers provided to the satisfaction of the patient/family/POA.
[2025-04-18] MEDS: LIDO 1%/EPINEPHRINE/PF 1:200,000 30 ML VIAL XX (09:51)
--- NOTE | 2025-04-18 10:13 | S_PTH ---
PATIENT: Amelia Latham LOC: [id number] U#:[id number] AGE/SX: 24/F ROOM: 329 RE04/17/[address]: Bill Blount MD : 2000 BED: 01 DIS: 04/18/2025 SPEC #: [id number] RECD: 04/19/25 07:18 STATUS: JOHNNA REQ #: [id number] SEVERINO: 04/18/25 10:[address]: Bill Blount DEPT: [facility] Surgical RECD BY: Merrill Persaud ENTERED: 04/19/25 07:19 SP TYPE: Surgical OTHR DR: Jeronimo Mata MD COMPUTER REPAIR TECHNICIAN PHYSICIAN Tissues: A - Appendix Procedures: Hematoxylin and Eosin Stain Gross and Microscopic Level 3
[2025-04-18] MEDS: LACTATED RINGERS 1,000 ML 30 ML IV CONT (11:06)
--- NOTE | 2025-04-18 11:07 | P.OP_ITS ---
Procedure Note - Detailed Date of Procedure 04/18/25 Pre-op Diagnosis Acute appendicitis Post-op Diagnosis Same Procedure Performed Laparoscopic appendectomy Surgeon Bill Blount MD Surveillance Sensor Officer AYANA Rocha Anesthesia General Indications Patient is a 24-year-old female who is 2 weeks vaginal delivery who presents to the emergency with a 1 to 2 day history of worsening right lower quadrant abdominal pain. Elevated white blood cell count [address] CT scan reports a dilated inflamed appendix without rupture. She presents now for emergent laparoscopic appendectomy. Findings The appendix was moderately inflamed and retrocecal. No perforation noted. Description of Procedure After informed consent was obtained patient brought to the operating room placed supine position and general endotracheal anesthesia was administered. Dupont catheter was placed decompress the bladder and then the abdomen was prepped draped usual sterile fashion. Time-out was then performed correctly identifying the patient as well as procedure to be performed. She was already on scheduled IV antibiotics. I entered the abdomen with a small periumbilical incision through a once inside the abdomen and placed a 12mm port under direct visualization and then insufflated to adequate pneumoperitoneum of 15mmHg of CO2. I then placed a 5mm suprapubic trocar port a 5mm right lower quadrant trocar port all under direct visualization. The appendix was seen to be curling underneath the cecum in a retrocecal position. The base of the appendix appeared to be normal. With laparoscopic instruments I held up the appendix in the proximal 1/3 and made a defect through the mesoappendix at the base. A 45mm Endo-PILAR stapler was then used to divide the appendix flush with the cecum. Adhesions of the appendix to the mesoappendix and peritoneum were then divided utilizing laparoscopic moreno. Eventually I was then able to divide the mesoappendix with multiple vascular reloads of the Endo-PILAR stapler. Once the appendix was completely freed and placed into an Endo-Catch bag and brought out through the umbilical trocar port. It was sent to pathology for examination. I then irrigated out the right lower quadrant the abdomen. Both staple lines appeared to be hemostatic. I then removed all the trocar ports under direct visualization all port sites appeared hemostatic. The abdomen was allowed to decompress. I then proceeded to close the 12mm umbilical trocar port and fascial defect utilizing 3 separate 0 Ethibond sutures. Incisions were then irrigated and hemostasis was good. I then closed all the incision utilizing running subcuticular 4-0 Monocryl sutures. Incisions were then cleaned the skin glue was applied. At the end the procedure the Dupont catheter was removed. The patient tolerated the procedure well no complications. All sponges, needles, and instrument counts were correct at the end procedure. EBL was _15__cc. The patient was awakened and taken to recovery in stable and satisfactory condition. Implants None Estimated Blood Loss 15 Drains No Packing No Pathology Yes (Appendix to pathology) Complications No immediate complications Condition Stable Disposition PACU [facility] Billing Surgery - Charge Forward: Surgery Billing
--- NOTE | 2025-04-18 11:18 | P.DS_ITS ---
DS: Admitting Diagnosis Discharge Date April 18, 2025 Admitting Diagnosis Acute appendicitis DS: Discharge Diagnosis Discharge Diagnosis (1) Acute appendicitis: Qualifiers: Acute appendicitis type: with localized peritonitis Appendicitis abscess presence: without abscess Appendicitis gangrene presence: without gangrene Appendicitis perforation presence: without perforation Qualified Code(s): K35.30 - Acute appendicitis with localized peritonitis, without perforation or gangrene Code(s): K35.80 - Unspecified acute appendicitis Status: Acute DS: Summary Hospital Course Reason for hospitalization: Acute appendicitis Hospital Course: Patient is 2 weeks from a spontaneous normal uncomplicated vaginal delivery. She started having right lower quadrant pain about 1 day ago. She presented to the emergency room with a worsening pain and was found to have acute appendicitis by CT scan. Mildly elevated white blood cell count as well. She says was admitted to the surgical floor and kept NPO. Given IV pain medication as needed. Started on Zosyn for IV antibiotics. Next morning she was then taken to the operating room for emergent laparoscopic appendectomy. This was uncomplicated. Postsurgical course and recovery was uneventful. She was then transferred back to surgical floor. She was given a diet which she tolerated without difficulty. Able to ambulate in the hallways and the room without difficulty in urinate spontaneously. Pain was well controlled on oral pain medications. She was discharged home later today in improved condition. Incisions were healing well and dry without evidence of bleeding. Status at Discharge Functional status at discharge: independent ambulation Overall status at discharge: patient is back to baseline Time Spent with Patient Time attestation: Total time spent providing and/or coordinating discharge services: Time spent: Less than 30 minutes Exam GI: Other: Abdomen soft nondistended. Port site incisions healing well. No drainage or bleeding. Expected mild tenderness around the port site incisions. DS: Data Data Completed and Pending Pending studies at discharge: Pending at discharge 04/18/25 10:13 Surgical [PTH] Routine Labs on day of discharge: Labs from last 24 hours 04/18/25 04/18/25 04/18/25 08:27 05:43 00:53 WBC RBC Hgb Hct MCV MCH MCHC RDW Plt Count MPV Immature Gran % (Auto) Neut % (Auto) Lymph % (Auto) [place] % (Auto) Eos % (Auto) Baso % (Auto) Lymph # (Auto) [place] # (Auto) Eos # (Auto) Baso # (Auto) Abs Immat Gran (auto) Absolute Neuts (auto) Absolute Nucleated RBC Nucleated RBC % Sodium Potassium Chloride Carbon Dioxide Anion Gap BUN Creatinine Estim Creat Clear Calc Estimated GFR Glucose POC Capillary Glucose 81 84 79 Calcium Total Bilirubin AST ALT Alkaline Phosphatase Total Protein Albumin Lipase Urine Color Urine Appearance Urine pH Ur Specific [place] Urine Protein Urine Glucose (UA) Urine Ketones Ur Blood (Man) Urine Nitrate Urine Bilirubin Urine Urobilinogen Leukocyte Esterase Rfl Urine RBC Urine WBC Ur Squamous Epith Cells Urine Bacteria Urine Casts POC Urine HCG, Qual 04/17/25 04/17/25 17:29 17:28 WBC 11.9 H RBC 5.12 Hgb 16.0 H D Hct 47.1 H MCV 92.0 MCH 31.3 MCHC 34.0 RDW 12.2 Plt Count 269 D MPV 11.0 H Immature Gran % (Auto) 0.3 Neut % (Auto) 74.0 H Lymph % (Auto) 18.2 L [place] % (Auto) 4.3 Eos % (Auto) 2.4 Baso % (Auto) 0.8 Lymph # (Auto) 2.16 [place] # (Auto) 0.5 Eos # (Auto) 0.3 Baso # (Auto) 0.1 Abs Immat Gran (auto) 0.03 Absolute Neuts (auto) 8.8 H Absolute Nucleated RBC 0.000 Nucleated RBC % 0.0 Sodium 136 L Potassium 3.6 Chloride 103 Carbon Dioxide 25 Anion Gap 8 BUN 18 H Creatinine 1.07 H Estim Creat Clear Calc Not Reportable Estimated GFR > 60 Glucose 97 POC Capillary Glucose Calcium 9.1 Total Bilirubin 0.4 AST 29 ALT 27 Alkaline Phosphatase 132 H Total Protein 7.5 Albumin 4.3 Lipase 69 Urine Color Yellow Urine Appearance Cloudy H Urine pH 8.0 Ur Specific [place] 1.022 Urine Protein Negative Urine Glucose (UA) Negative Urine Ketones Trace H Ur Blood (Man) Negative Urine Nitrate Negative Urine Bilirubin Negative Urine Urobilinogen 1.0 Leukocyte Esterase Rfl Trace H Urine RBC 0-2 Urine WBC 0-5 Ur Squamous Epith Cells None seen Urine Bacteria None seen Urine Casts 0-2 POC Urine HCG, Qual Negative Discharge Plan Discharge Attending physician on discharge: Bill Blount Consulting providers: Jeronimo Mata Discharging Clinician: Bill Blount Anticipated Discharge Date/Time: 04/18/25 11:14 Patient Disposition: Home Activity: other - see discharge instructions Diet: regular Wound Care Instructions: other - see discharge instructions Discharge Instructions: May discharge home when stable. Follow up with Dr. Blount in the office in 2 weeks. Patient to call [phone] for an appointment. May shower in 24hours but do not soak incisions under water for 2 weeks. No lifting more than 10 to 15 lb for 2 weeks. May advance diet as tolerated. No driving for at least 3 days or until no longer taking any narcotic pain medication. Resume all home medications. Prescription for narcotic pain medicines will be sent to the patient's pharmacy if needed. May use Tylenol and/or ibuprofen in addition to or in place of narcotic pain medications for postoperative pain. Patient Instructions: Antibiotic Form Patient Language: Tajik Stand Alone Forms: General Discharge Information Follow-up/Referrals: Bill Blount MD [Physician, General Surgery] Discharge Medications: New hydrocodone-acetaminophen 5-325 mg tablet 1 - 2 tablet PO Q4H PRN (Reason: pain) Qty: 10 0RF Continued aspirin [Adult Aspirin Regimen] 81 mg tablet,delayed release (DR/EC) 81 mg PO DAILY ibuprofen 600 mg Tablet 600 mg PO Q6H PRN (Reason: Cramping) Qty: 30 0RF No Action PNV no.95-ferrous fumarate-FA [] 28 mg iron- 800 mcg tablet 1 tablet PO DAILY Date of admission: 04/17/25 23:36 Primary Care Provider: PHYSICIAN,WIND POWER PROJECT MANAGER Admitting Provider: Bill Blount Attending physician on admission: Bill Blount Condition: Stable
[2025-04-18] MEDS: IBUPROFEN 600 MG TABLET PO (12:06)
[2025-04-18] MEDS: HYDROcodone/acetaminophen (*CRX) 5-325 MG TABLET 1 TAB PO (14:13)
== END 2025-04-18 15:40 | disposition home or self-care (01) ==
LOC: ANHED 21:13 → ANH3MEDSUR 23:52
PROVIDERS: Admitting Provider Surgery; Emergency Provider Physician Assistant; Visit Provider Surgery
PROC: 0DTJ4ZZ Resection of Appendix, Percutaneous Endoscopic Approach (ICD-10-PCS; CPT 44970; principal; 2025-04-18 10:30)
DX: O99.63 Diseases of the digestive system complicating the puerperium (principal); K35.80 Unspecified acute appendicitis
CPT/HCPCS: 44970; 36415; 74177; 80053; 81001; 81025; 82948; 83690; 85025; 88304; 96361; 96374; 96375; 96376; 99285; A9270; G0378; J1885; J2003; J2004; J2250; J2405; J2543; J2704; J3010; J7030; J7120; J7121; Q9967